=== PATIENT | female | born 1985 | race Caucasian/White ===

== ENCOUNTER 2023-12-22 11:03 | Emergency (ER) | payer BC, SELFPAY ==
[2023-12-22 11:20] VITALS: BP 118/73
[2023-12-22 11:32] LABS: % Basophils 0.9 % (0-2); % Eosinophils 2.7 % (0-6); % Immature Granulocytes 0.2 % (0-0.5); % Lymphocytes 30.7 % (20.5-51.1); % Monocytes 15.8 % (1.7-9.3); % Neutrophils 49.7 % (42.2-75.2); Absolute Basophils 0.1 10^3/uL (0-0.2); Absolute Eosinophils 0.2 10^3/uL (0-0.7); Absolute Lymphocytes 1.7 10^3/uL (1.2-3.4); Absolute Monocytes 0.9 10^3/uL (0.1-0.6); Absolute Neutrophils 2.8 10^3/uL (1.4-6.5); Hematocrit 39.9 % (37.0-47.0); Hemoglobin 13.9 g/dL (12.0-16.0); Mean Corp Hgb Conc. 34.8 g/dL (33.0-37.0); Mean Corpuscular Hgb 31.2 pg (27.0-31.0); Mean Corpuscular Volume 89.5 fL (81.0-99.0); Mean Platelet Volume 9.6 fL (7.4-10.4); Nucleated Red Blood Cells % 0 %; Platelet Count 337 10^3/uL (130-400); Red Blood Cell Count 4.46 10^6/uL (4.20-5.40); Red Cell Dist. Width 11.9 % (11.5-14.5); White Blood Cell Count 5.6 10^3/uL (4.8-10.8)
[2023-12-22 11:51] LABS: ALT (SGPT) 16 U/L (0-35); AST (SGOT) 20 U/L (14-36); Albumin 4.7 g/dl (3.5-5.0); Alkaline Phosphatase 56 U/L (38-126); Blood Urea Nitrogen 14 mg/dl (7-17); Calcium 10.4 mg/dl (8.4-10.2); Carbon Dioxide 25 mmol/L (22-30); Chloride 102 mmol/L (98-107); Glucose 99 mg/dl (70-99); Potassium 4.7 mmol/L (3.5-5.1); Sodium 137 mmol/L (135-145); Total Bilirubin 0.5 mg/dl (0.2-1.3); Total Protein 7.8 g/dl (6.3-8.2); eGFR > 60.00
[2023-12-22 12:00] LABS: Troponin I < 0.012 ng/ml
--- NOTE | 2023-12-22 14:20 | ED.GENMED ---
History of Present Illness
General
Chief Complaint: Chest Pain
Source: patient
Exam Limitations: none
Time Seen by Provider: 12/22/23 14:16
Nursing documentation reviewed up to this point in time: agreed with
Travel History
Have you had any contact with someone who has COVID-19?: No
Do you have any symptoms of coronavirus? Fever > 100 degrees, chills, cough, shortness of breath, sore throat, loss of taste or smell, muscle aches, or headache?: No
History of Present Illness
History of Present Illness:
38-year-old female with no chronic medical problems presents for chest discomfort that was spontaneous in onset last evening around 10 PM lasting about 10 minutes, the anterior left chest and felt sharp but was only mild to moderate in intensity and
resolved on its own. Patient was able to sleep through the night and woke up feeling well until 1030 this morning when she was sitting at her desk at work and suddenly again felt stronger more intense sharp chest pain just to the left of her
sternum. Patient says that she felt like there was a lump in her throat. She had no trouble breathing, diaphoresis, nausea or vomiting. Patient says the chest discomfort intensity worried her and she called her mom who is a nurse when the pain
lasted longer than last night's episode.
She says ultimately once she got to the ER the pain slowly dissipated and now she has no discomfort. She has been here for several hours and has not had recurrence. She is not having any swelling in her legs, cough, fever, chills, recent long
travel, history of DVT or PE, family history of premature coronary artery disease, smoking. She has no history of GERD and denies any injuries recently
Past History
Past History
ED Past Medical History: None
ED Past Surgical History: None
Social History
Tobacco: Non-smoker
Alcohol: Occasional
Drug: None
Personal:
Living: alone
Employment: Employed
Review of Systems
Review of Systems
Allergies reviewed?: Yes
All Other Systems: Not applicable
Phy Exam
Physical Exam
Physical Exam:
GENERAL: Alert , in no apparent distress
EYE: pupils equal and reactive
NECK: Supple
ENT: o/p clr, mmm.
CARDIAC: Regular rate and rhythm .
chest wall: nontender
LUNGS: Clear breath sounds bilaterally, no acute respiratory distress, no wheezes/rales/rhonchi
ABDOMEN: Soft, without focal tenderness, no r/g, no cvat, normal bowel sounds
NEUROLOGICAL: Alert and oriented, no focal neuro deficits
SKIN: Warm and dry, skin intact.
MUSCULOSKELETAL: No edema, well perfused. neg juan's sign
PSYCH: Normal and appropriate interaction.
Scores
Heart Score for Chest Pain Patients
STEMI patient?: No
History: Slightly or Non-Suspicious
ECG: Nonspecific Repolarization
Age: </= 45 years
Risk Factors: No Risk Factors
Troponin: </= Normal Limit
Heart Score for Chest Pain Patients: 1
Heart Score Risk: 2.5% MACE over next 6 weeks
Course
Orders/Labs/Results
Orders:
Orders
12/22/23 11:06
Electrocardiogram (*1) Urgent
Reason for Study: Chest Pain
EKG- Treatment ONCE
12/22/23 11:25
Complete Blood Count/With Diff Urgent
Comprehensive Metabolic Panel Urgent
HCG, Serum Qualitative Screen Urgent
Comment: HCG QUAL SERUM ADDED ON BY FLOOR 2:50PM 12-22-23
Troponin I Urgent
12/22/23 14:49
Add On- LAB Urgent
Tests Added?: hcg qual serum
EKG- Treatment ONCE
12/22/23 14:54
Mag Hydrox/Al Hydrox/Simeth [Maalox] 30 ml Phenobarb/Hyoscy/Atropine/Scop [] 10 ml PO NOW
12/22/23 15:19
D-Dimer Urgent
Troponin I Urgent
12/22/23 15:21
Phenobarb/Hyoscy/Atropine/Scop [] 10 ml .ROUTE .STK-MED ONE
12/22/23 15:22
Mag Hydrox/Al Hydrox/Simeth [Maalox] 30 ml .ROUTE .STK-MED ONE
12/22/23 15:30
Electrocardiogram (*1) Urgent
Reason for Study: Chest Pain
12/22/23 16:00
CR Chest - 2 Views Urgent
Comment:
Reason For Exam: chest pain
Abnormal Lab Results
12/22/23
11:25
MCH 31.2 H pg
(27.0-31.0)
Absolute Monos (auto) 0.9 H 10^3/uL
(0.1-0.6)
Monocytes % 15.8 H %
(1.7-9.3)
Calcium 10.4 H mg/dl
(8.4-10.2)
12/22/23 11:25
12/22/23 11:25
Vital Signs
Initial and Last Documented VS:
Initial Vital Signs
Temp Pulse Resp BP Pulse Ox
98.5 F 85 16 118/73 97
12/22/23 11:20 12/22/23 11:20 12/22/23 11:20 12/22/23 11:20 12/22/23 11:20
Last Documented Vital Signs
Temp Pulse Resp BP Pulse Ox
98.5 F 71 19 117/71 100
12/22/23 11:20 12/22/23 15:30 12/22/23 15:30 12/22/23 15:27 12/22/23 15:30
MDM/Problems Addressed
Differential Diagnosis Includes:
ACS, PE, GERD, chest wall pain, esophageal spasm
MDM/Problems Addressed:
38-year-old female with no medical problems presents for episodic chest discomfort spontaneously at rest, last night lasting 10 minutes, today lasting about an hour and a half while she was at her desk. Patient says it was sharp and she felt some
discomfort in her throat but was not associated with any shortness of breath, nausea or diaphoresis. She is never had anything like this before. She is on an oral contraceptive. There has not been any leg swelling
On exam the patient has stable vital signs, no discomfort with palpation, no appreciated murmurs, clear lungs, nontender abdomen, no signs of DVT. Her EKG is normal sinus rhythm with a slight ST flattening inferior laterally but no T wave
inversions and no old EKG to compare. Her first troponin was negative. Her D-dimer was negative. Patient's repeated EKG and troponin were unchanged and nonischemic. She had a clear chest x-ray independently reviewed by me. This is unlikely to
be ACS, recommend Tylenol, GI cocktail, follow-up with outpatient primary care doctor for referral to cardiology for persistent episodic chest discomfort
*Critical Care Note
Total Time (30-74mins, 75-104mins- exclusive of procedures): Not Applicable
ED Attending Note
-
Portions of this chart may have been created with voice recognition software.� Occasional wrong word or��sound alike� substitutions may have occurred due to the inherent limitations of voice recognition software.
Discharge Plan
Departure
Patient Disposition: Home (Routine Discharge)
Date of Disposition: 12/22/23
Time of Disposition: 16:22
Patient with high blood pressure during this ER visit?: No
Condition: Fair
Covid-19: Not Applicable
Discharge Problem:
Chest pain
Instructions: Chest Pain PCP Follow Up
Referrals:
NONE,* [Family Provider] -
Stand Alone Forms: Return to Work
Activity Restrictions/Additional Instructions:
You are not sure the cause of your chest discomfort. Your workup here is reassuring that this is not cardiac, you had a negative D-dimer which rules out a blood clot. Your chest x-ray appears clear.
please follow-up with your family doctor, you may need a referral to cardiology if you have continued symptoms however this could also be acid reflux. You can try Tylenol as needed for pain, Pepcid twice a day for 1 week
Return for persistent worsening symptoms, or symptoms associated with shortness of breath, passing out, lightheadedness, sweatiness etc.
Interventions
Interventions:
*Risk Screen - Suicide Last Done: 12/22/23 11:20
*General Assessment Last Done: 12/22/23 11:20
*Neglect/Abuse Screening Last Done: 12/22/23 11:20
*ED COVID-19 Vaccine History Last Done: 12/22/23 11:20
ED- Cardiac Assessment Last Done: 12/22/23 15:29
Discharge Date and Time
Print Language: HUNGARIAN
[2023-12-22] MEDS: MAALOX 40 PO (15:23)
[2023-12-22 15:27] VITALS: BP 117/71
[2023-12-22 15:39] LABS: HCG, Serum Qualitative Screen Negative
[2023-12-22 15:40] LABS: D-Dimer 0.37 ug/mlFEU (0.00-0.50)
[2023-12-22 15:52] LABS: Troponin I < 0.012 ng/ml
[2023-12-22 16:00] VITALS: BP 104/63
== END 2023-12-22 16:46 | disposition home or self-care (01) ==
LOC: EMR 11:03
PROVIDERS: Emergency Medicine; Physician Assistant; EMERGENCY PHYSICIAN Student in an Organized Health Care Education/Training Program
DX: R07.89 Other chest pain (principal)
CPT/HCPCS: 99285; 71046; 80053; 84484; 84703; 85025; 85379; 93005